=== PATIENT | male | born 1995 | race Caucasian/White ===

== ENCOUNTER 2021-07-26 18:26 | Emergency (ER) | payer BC ==
[~2021-07-26] VITALS: Ht 213.4 cm; Wt 68.0 kg
[~2021-07-26 18:26] MED LIST: AMBIEN5 MG PO; AMLODIPINE10 MG PO; BACTRIM DS1 TAB PO; BACTRIM SUSP PO; CEPHALEXIN500 MG PO; HYDROCORTISO2.51 EX; MIRALAX3350 N1 OR; MIRALAX3350 NF PO; MULTIVITAMIN OR; NO HOME MEDS; ORAPRED15 MG/5 ML PO; TAM75CAP PO; TRIAMCINOLON0.11 EX; ZOFRAN ODT4 MG PO; ZOFRAN ODT4 MG SL; motrin; tylenol
[2021-07-26 19:35] LABS: HEMATOCRIT 43.8 % (39.0-50.0); HEMOGLOBIN 14.5 g/dl (14.0-18.0); IMMATURE GRANULOCYTES 0.4 % (0.0-5.0); MEAN CORPUSCULAR HGB 30.1 pG CALC (26.0-32.0); MEAN CORPUSCULAR HGB CONC 33.1 g/dL CAL (32.0-36.0); NEUT# 3.79 thou/uL (1.82-7.42); RED BLOOD COUNT 4.81 mill/uL (4.70-6.10); RED CELL DISTRI WIDTH 12.3 % (11.5-15.5)
[2021-07-26 19:36] LABS: MEAN CELL VOLUME 91.1 fL CALC (80.0-100.0)
[2021-07-26 19:51] LABS: ANION GAP 12 (6-22 (CALC)); BUN 14 mg/dL (9-20); BUN/CREATININE RATIO 13 (12-20 (CALC)); CARBON DIOXIDE 31 mmol/l (22-30); CHLORIDE 97 mmol/l (95-108); GFR > 60 ML/MIN (>=60 (CALC)); GFR FOR AFR.AMER. > 60 ML/MIN (>=60 (CALC)); LIPASE 35 u/l (23-300); POTASSIUM 3.7 mmol/l (3.5-5.1); SGOT/AST 34 u/l (17-59); SODIUM 136 mmol/l (137-146); TOTAL PROTEIN 8.2 g/dL (6.3-8.2)
[2021-07-26 19:52] LABS: ALKALINE PHOSPHATASE 91 u/l (38-126); BILIRUBIN, TOTAL 0.8 mg/dL (0.0-1.4)
[2021-07-26 22:12] LABS: URINE BILIRUBIN - DIPSTICK NEGATIVE (NEGATIVE); URINE BLOOD DIPSTICK SMALL (NEGATIVE); URINE COLOR YELLOW; URINE GLUCOSE - DIPSTICK NEGATIVE (NEGATIVE); URINE KETONE NEGATIVE (NEGATIVE); URINE LEUK ESTERASE NEGATIVE (NEGATIVE); URINE PROTEIN - DIPSTICK NEGATIVE (NEG-TRACE); URINE UROBILINOGEN - DIPSTICK 0.2 E.U./dL (0.2)
[2021-07-26 22:13] LABS: URINE NITRITE - DIPSTICK NEGATIVE (Negative)
[2021-07-26 22:18] LABS: URINE WBC 0-2 WBC/hpf (0-5)
[2021-07-26] MEDS ORDERED: ULTRAM50 MG PO (22:31)
[2021-07-26 22:35] VITALS: BP 120/72
== END 2021-07-26 22:40 | disposition home or self-care (01) | DRG 605 ==
LOC: ED 18:26
DX: S30.1XXA Contusion of abdominal wall, initial encounter (principal); J06.9 Acute upper respiratory infection, unspecified; Z20.822 Contact with and (suspected) exposure to COVID-19; W22.8XXA Striking against or struck by other objects, initial encounter
CPT/HCPCS: Q9967